=== PATIENT | male | born 1965 | race Caucasian/White ===

== ENCOUNTER → 2021-10-07 13:06 | Outpatient (CLI) | payer OTHER, SELFPAY ==
[2021-10-07 16:10] LABS: COVID19 -Nasal RAPID Negative (Negative)
== END ==
PROVIDERS: Referring Provider Orthopaedic Surgery; Visit Provider Family Medicine Sleep Medicine
DX: Z20.822 Contact with and (suspected) exposure to COVID-19 (principal)
CPT/HCPCS: 87635; C9803

== ENCOUNTER → 2021-11-06 13:10 | Outpatient (CLI) | payer OTHER, SELFPAY ==
[2021-11-06 14:46] LABS: COVID19 -Nasal RAPID Negative (Negative)
== END ==
PROVIDERS: PCP Family Medicine; Referring Provider Orthopaedic Surgery; Visit Provider Nurse Practitioner Family
DX: Z20.822 Contact with and (suspected) exposure to COVID-19 (principal)
CPT/HCPCS: 87635; C9803

== ENCOUNTER 2021-11-08 11:32 | Day surgery (SDC) | payer OTHER, SELFPAY ==
[2021-09-27 15:07] VITALS: BMI 39.2
--- NOTE | 2021-10-09 07:31 | SUR.PREOP ---
10/09/21-0730am- Dr Holliday here at bedside to explain to patient of reason to delay of procedure today. Given option for being done Thursday afternoon if cancelled today.
[2021-11-08] VITALS (13 sets, daily range): BP systolic 112–145; BP diastolic 62–89; PULSE 60–84; RESP 16–23; TEMP 35.9–37.4; O2SAT 93–98; BMI 39.2
--- NOTE | 2021-11-08 06:00 | DI.RAD.S_ITS ---
PROCEDURE: XR KNEE LT 1TO2V INDICATIONS: post op total knee TECHNIQUE: 2 view(s) of the knee acquired. COMPARISON: None. FINDINGS: Bones: Patient is status post knee joint arthroplasty. Hardware components are in expected positions. Visualized bony structures are intact. Soft tissues: Overlying postoperative changes are noted. IMPRESSION: Postop changes from left total knee arthroplasty with anatomic left knee alignment. Dictated by: Warren Wood M.D. on 11/08/2021 at 16:35 Approved by: Warren Wood M.D. on 11/08/2021 at 16:36
[2021-11-08] MEDS: ACETAMINOPHEN 325 MG TABLET 975 MG PO (11:46)
[2021-11-08] MEDS: PREGABALIN 75 MG CAPSULE PO (11:47)
[2021-11-08] MEDS: CELECOXIB 200 MG CAPSULE PO (11:47)
[2021-11-08] MEDS: LACTATED RINGERS 1,000 ML 42 ML IV (12:08)
--- NOTE | 2021-11-08 12:17 | SUR.OPER ---
Supine on padded OR bed. Pillow under head, arms secured on padded armboards <90 degree abduction. Safety belt across torso. Non-operative leg secured with tape over blanket over lower leg. Operative leg secured in DeMayo/Jemal/Nathe positioner. Foam padded brace at thigh of operative leg.
--- NOTE | 2021-11-08 12:42 | PM.HP.1 ---
History of Present Illness History of Present Illness Date Patient Seen: 11/08/21 Time Patient Seen: 12:42 Chief complaint: LT TKA *OPB* Narrative: The patient has had long-term left knee pain that has not responded to non operative measures. He was originally planning to have a total knee replacement done in September however was delayed by the governor is mandate on - closing the hospital to elective surgery. This is an interval history and physical. There has been no significant change in his history since his previously completed history and physical on September 17. Patient History Medical History Actinic keratosis Decreased libido Delayed emergence from general anesthesia Erectile dysfunction History of chest pain HTN (hypertension) Hyperlipidemia Knee effusion Overweight RBBB Shortness of breath on exertion Sleep apnea Unilateral primary osteoarthritis, left knee Urinary tract infection (~01/2021) Surgical History H/O arthroscopy of right knee H/O meniscectomy of right knee History of colonoscopy with polypectomy History of knee surgery Family & Social History Social History: household members spouse Prior Living Arrangements House Safety & Behavioral: Feels Safe in Current Yes Environment Been Physically Hurt or No Threatened By a Person Suicidal Ideation Description None Suicide Plan Description No Plan Tobacco & Substance use: Smoking Status Former smoker Smoking packs per day 0.33 alcohol intake former Substance Use Type marijuana Meds Home Medications and Allergies Home Medications Medication Instructions Recorded Confirmed Type acetaminophen 500 mg tablet 1,000 mg PO Q6H PRN 09/27/21 11/08/21 History compression socks, medium 09/27/21 09/27/21 History esomeprazole magnesium 20 mg 20 mg PO BEDTIME 09/27/21 11/08/21 History capsule,delayed release (Nexium) gabapentin 400 mg tablet 1,200 mg PO QAM 09/27/21 11/08/21 History gabapentin 400 mg tablet 800 mg PO BEDTIME 09/27/21 11/08/21 History ketoconazole 2 % shampoo 1 applic TOPICAL DAILY 09/27/21 09/27/21 History metoprolol succinate 50 mg 75 mg PO BEDTIME 09/27/21 11/08/21 History tablet,extended release 24 hr (Toprol XL) potassium chloride 8 mEq 8 meq PO BID 09/27/21 11/08/21 History capsule,extended release tadalafil 10 mg tablet 10 mg PO DAILY PRN 09/27/21 11/08/21 History triamterene 75 1 tab PO DAILY 09/27/21 11/08/21 History mg-hydrochlorothiazide 50 mg tablet Allergies Allergy/AdvReac Type Severity Reaction Status Date / Time latex Allergy Mild Rash Verified 11/08/21 12:00 lisinopril AdvReac Mild Cough Verified 11/08/21 12:00 Review of Systems Review of Systems Narrative: The patient reports he is in his normal state of health. There have been no recent acute changes. Exam Vital Signs (past 8 hours): - 11/08/21 12:03 Temperature 98.4 F Pulse Rate 68 Respiratory Rate 16 Blood Pressure 145/89 H Pulse Oximetry 98 Oxygen Delivery Method Room Air Narrative Exam Narrative: He is an obese gentleman lying comfortably in his hospital [facility]. Chest is clear to auscultation. Cardiac exam is regular rate and rhythm. Abdomen is obese soft nontender. Left knee examination is documented in the prior history and physical. Assessment & Plan Assessment & Plan narrative: Left knee osteoarthritis which has failed to respond to non operative measures. As noted in the prior history and physical he has agreed to surgery after discussion the risks benefits and alternatives. Risks discussed included but were not limited to: Failure to improve, stiffness, infection, nerve damage, deep venous thrombosis, pulmonary embolism, stroke, myocardial infarction, permanent paralysis and . COVID-19 COVID-19 status: Negative Result date/Date tested (Pos, Neg/Pending): 11/06/21 Time Spent With Patient Critical Care time: I spent a total of [] minutes of critical care time on this patient's care today; this time is exclusive of procedural time.
[2021-11-08] MEDS: CEFAZOLIN 2 GM/20 ML SYRINGE IV (13:25)
[2021-11-08] MEDS: TRANEXAMIC ACID 1,000 MG VIAL 1000 MG INJ ×2 (13:30→14:34)
[2021-11-08] MEDS: BUPIVACAINE LIPOSOME 266 MG/20 ML VIAL INJ (13:44)
[2021-11-08] MEDS: BUPIVACAINE 0.25% (PF) 60 ML, EPINEPHrine 0.3 MG INJ (13:45)
[2021-11-08] MEDS: MORPHINE 4 MG/ML INJ INJ (14:04)
--- NOTE | 2021-11-08 15:05 | PM.OP.1 ---
Operative Date/Time/Diagnoses Date of procedure: 11/08/21 Time of procedure: 15:05 Pre-op diagnosis: Left knee osteoarthritis Post-op diagnosis: same Procedure & Clinicians Procedure: Left total knee replacement Same procedure as scheduled: Yes Indications: The patient has had progressively worsening left knee pain with radiographic changes consistent with arthritis. Non-operative management has failed and the patient has requested total knee replacement. The risks, benefits and alternatives to surgery were discussed with the patient prior to proceeding. Risks discussed included, but were not limited to, failure to relieve pain, stiffness, infection, nerve damage, deep venous thrombosis, pulmonary embolism, stroke, coma, heart attack, permanent paralysis and , as well as the potential need for eventual revision of the prosthetic. Surgeon: Barrett Holliday Probation And Parole Officer: Katlin Hennessy Yes if Unassisted: No Anesthesia Type: General, Spinal and Local Operative Notes Findings: Severe medial and moderate patellofemoral and lateral osteoarthritis Closure Type: primary Specimen(s): none sent Prosthetic devices, grafts, tissues, transplants, or devices: Implants used in this procedure were manufactured by the [employer] and included the BCS II Journey total knee replacement with a size 6 left Oxinium femoral component, a size 6 left non porous tibial base plate, a 9 mm cross-linked polyethylene tibial insert and a 35 mm oval Lynda II patellar component. Applied: implant(s) Estimated Blood Loss (mL): 25 Blood products transfused: none Tourniquet time (min): 53 Procedure in detail: The patient was seen in the pre-operative area, where the left knee was identified as the operative site and this was marked with my initials. The patient received pre-operative antibiotics, and was taken to the operating room and placed on the operative table in the supine position. After satisfactory anesthesia, a second time worker out was performed. The left leg was encircled with a tourniquet about the proximal thigh, and the leg was prepared from the toes to the tourniquet with ChloroPrep in the usual fashion and draped through sterile drapes. The leg was elevated and exsanguinated with Eschmark bandage and the tourniquet inflated to 250 mmHg pressure. The knee was approached through an approximately 18 cm incision centered over the patella and carried into the knee through a medial parapatellar arthrotomy. The anterior osteophytes and soft tissues were removed. The rotational landmarks of Bannister's line and the transepicondylar axis were marked on the femur with electrocautery, and intramedullary guide holes for the femur and tibia were created. The distal femoral cut was made in 6 degrees of valgus using the intramedullary guide at the primary cut setting. The proximal tibial cut was then made using the intramedullary guide, taking 9 mm of bone off the less involved side. The extension gap was checked and the rotation of the femoral component confirmed with the gap balancing blocks. The anterior, posterior and chamfer cuts were then made. The posterior osteophytes and soft tissues were then removed. The posterior capsule was injected with part of a mixture of 60 ml 0.25% Marcaine mixed with 20 ml Exparel and 4 mg of morphine for post-operative pain control. The remainder of this mixture was injected into the capsule and subcutaneous tissues during cement curing. The tibia was prepared with the rotation set by an extra medullary guide. Trial tibial and femoral components were then placed and the intercondylar notch cut through the femoral trial. Range of motion was 0-135 degrees, with good stability throughout the range. The patella was then cut to accommodate the patellar prosthetic. There was no need for a lateral release. The trials were then removed, and the femoral hole plugged with a bone plug. The bone was prepared with pulsatile lavage, and dried with a sponge. Cement was applied and the final prosthetics placed. Excess cement was removed during and after cement curing. After confirming there was no extruded cement posteriorly, the final tibial insert was placed. The knee was copiously irrigated and the tourniquet deflated. Hemostasis was obtained. The capsule was closed with interrupted # 2 polyester sutures. The subcutaneous layer was closed with 3-0 Vicryl, and the skin with a running 3-0 V-Lock suture and Dermabond. An Aquacel Ag dressing was applied and the patient was taken to recovery having tolerated the procedure well. Complications: none Post-operative Condition: stable Disposition: PACU Plan for aftercare: The patient will be maintained on a standard total knee replacement protocol with weight bearing as tolerated. The patient will receive aspirin and sequential compression devices for DVT prophylaxis. The patient will be discharged home when safe for the home environment.
[2021-11-08] MEDS: SCOPOLAMINE 1 PATCH TOP (16:04)
[2021-11-08] MEDS: ONDANSETRON 4 MG/2 ML INJ IV (16:07)
[2021-11-08] MEDS: LACTATED RINGERS 1,000 ML 100 ML IV (16:15)
[2021-11-08] MEDS: IBUPROFEN 400 MG TABLET PO ×2 (17:02→20:33)
[2021-11-08] MEDS: hydrOXYzine pamoate 25 MG CAPSULE PO (17:02)
[2021-11-08] MEDS: METOCLOPRAMIDE 10 MG/2 ML INJ IV (17:02)
--- NOTE | 2021-11-08 18:49 | PC.NURSE ---
1615- Rec'd pt from PACU. AO x4. RA. Stable VS. Pt reports tingling to bilateral upper thighs and numbness distally, equally, and bilaterally. Pt is able to lift leg and wiggle toes. Reports decreased sensation. Denies pain. Reports mild nausea. Tolerated ice chips, apple sauce, and crackers. General diet for dinner tolerated well. LR infusing per order. Pt has home cpap at bedside. Oriented to room, routine, use of call light, fall risk. Instructed pt to wait for assistance before getting OOB. Pt verbalizes understanding.
[2021-11-08] MEDS: HYDROMORPHONE 2 MG TABLET PO (20:33)
[2021-11-08] MEDS: PANTOPRAZOLE DR 20 MG TABLET PO (20:34)
[2021-11-08] MEDS: METOPROLOL ER 50 MG TABLET 75 MG PO (20:34)
[2021-11-08] MEDS: DOCUSATE 100 MG CAPSULE PO (20:34)
[2021-11-08] MEDS: POTASSIUM CHLORIDE 10 MEQ TAB PO (20:34)
[2021-11-08] MEDS: GABAPENTIN 400 MG CAPSULE 800 MG PO (20:34)
[2021-11-08] MEDS: ASPIRIN EC 81 MG TABLET PO (21:10)
[2021-11-08] MEDS: OXYCODONE/ACETAMINOPHEN 5/325 TABLET 1 TAB PO (22:16)
[2021-11-09] VITALS: BP 120/71; PULSE 67; RESP 22; TEMP 36.7; O2SAT 98
[2021-11-09] MEDS: OXYCODONE IR 10 MG TABLET PO ×4 (00:34→12:52)
[2021-11-09] MEDS: IBUPROFEN 400 MG TABLET PO ×4 (00:35→12:52)
--- NOTE | 2021-11-09 00:37 | PC.NURSE ---
Addendum entered by Brii Alston R.N. 11/09/21 04:41: 0430: Pt still unable to void. Straight cath performed per sterile procedure, 900 mL clear abena urine obtained, pt tolerated well. Original Note: 0015: Pt still unable to void. Bladder scan performed, 530 mL scanned. Pt defers straight cath at this time, stating he would like to try voiding again at 0400 and if unable will be amenable to straight cath.
[2021-11-09 04:00] VITALS: BP 120/71; PULSE 70; RESP 18; TEMP 36.9; O2SAT 97
[2021-11-09] MEDS: POTASSIUM CHLORIDE 10 MEQ TAB PO (08:40)
[2021-11-09] MEDS: ASPIRIN EC 81 MG TABLET PO (08:40)
[2021-11-09] MEDS: TRIAMTERENE/HCTZ 37.5/25 CAPSULE 1 CAP PO (08:40)
[2021-11-09] MEDS: GABAPENTIN 600 MG TABLET 1200 MG PO (08:41)
[2021-11-09] MEDS: DOCUSATE 100 MG CAPSULE PO (08:41)
--- NOTE | 2021-11-09 08:51 | PM.DS.1 ---
History of Present Illness History of Present Illness Date Patient Seen: 11/09/21 Time Patient Seen: 08:51 Chief complaint: LT TKA *OPB* Narrative: The patient has had long-term left knee pain that has not responded to non operative measures. He was originally planning to have a total knee replacement done in September however was delayed by the governor is mandate on COVID- closing the hospital to elective surgery. This is an interval history and physical. There has been no significant change in his history since his previously completed history and physical on September 17. Discharge Providers Provider Date of admission: 11/08/21 16:35 Discharge Date: 11/09/21 Primary care physician: Kiarra Phelps MD Consults: 11/08/21 15:56 Consult to Discharge Planning Routine Comment: Consult to Physical Therapy Evaluate & Treat Comment: Physician Instructions: postop TKA protocol Discharge provider: Barrett Holliday MD Summary Hospital Course Discharge Diagnosis: 1. Left knee osteoarthritis. 2. Post operative urinary retention. Hospital Course: The patient was admitted to the hospital on 11/08/21 and taken directly to the operating room, where he underwent a left total knee replacement without difficulties. He had good pain control overnight, but did require straight catherization for urinary retention. On the morning of post operative day one, it is anticipated he will be able to go home today once he demonstrates he can void spontaneously. Status at Discharge Cognitive/behavioral status at discharge: at baseline, oriented Functional status at discharge: uses cane/walker Overall status at discharge: patient is progressing back to baseline Time Spent with Patient Time spent: Less than 30 minutes Exam Vital Signs (past 8 hours): - 11/09/21 04:00 Temperature 98.4 F Pulse Rate 70 Respiratory Rate 18 Blood Pressure 120/71 Pulse Oximetry 97 Oxygen Delivery Method Room Air Oxygen Flow Rate 0 Narrative Exam Narrative: Left knee wound is dressed with no drainage on the bandage. Calf is soft. Light touch and motion are intact in the left lower extremity. [facility] Medical History Actinic keratosis Decreased libido Delayed emergence from general anesthesia Erectile dysfunction History of chest pain HTN (hypertension) Hyperlipidemia Knee effusion Overweight RBBB Shortness of breath on exertion Sleep apnea Unilateral primary osteoarthritis, left knee Urinary tract infection (~01/2021) Surgical History H/O arthroscopy of right knee H/O meniscectomy of right knee History of colonoscopy with polypectomy History of knee surgery Social History household members: spouse Smoking Status: Former smoker alcohol intake: former Discharge Assessment & Plan Assessment and Plan Assessment: Stable post operative day one from a left total knee replacement with the exception of urinary retention, likely due to the spinal anesthetic, overnight. Plan of Treatment: Voiding trial today, then discharge to home. Follow up at my office in 10-14 days. Outpatient physical therapy. He has been given prescriptions for oxycodone and Vistaril for pain and spasm control. He has been instructed in the use of Tylenol and ibuprofen for additional pain control. Discharge Plan Discharge Plan Patient Disposition: Home Discharge orders & Medications Prescriptions: New aspirin 81 mg Tablet,Delayed Release (Dr/Ec) 81 mg PO BID 42 Days Qty: 84 0RF ibuprofen 400 mg Tablet 400 mg PO Q4HR 30 Days 0RF oxycodone 5 mg Tablet 5 mg PO Q4H PRN (Reason: Pain, Moderate (4-6)) Qty: 40 0RF hydroxyzine pamoate 25 mg Capsule 25 mg PO Q6HR PRN (Reason: Spasms) Qty: 30 0RF Continued metoprolol succinate [Toprol XL] 50 mg Tablet Extended Release 24 Hr 75 mg PO BEDTIME 0RF triamterene-hydrochlorothiazid 75-50 mg Tablet 1 tab PO DAILY 0RF esomeprazole magnesium [Nexium] 20 mg Capsule,Delayed Release(Dr/Ec) 20 mg PO BEDTIME 0RF tadalafil 10 mg Tablet 10 mg PO DAILY PRN (Reason: Erectile Dysfunction) 0RF (DME) compression socks, medium Misc MISCELLANEOUS 0RF Rx Instructions: Wear one compression sock on each leg every day for peripheral edema ketoconazole 2 % Shampoo 1 applic TOPICAL DAILY 0RF Label Comments: Apply to face daily for rosacia potassium chloride 8 mEq Capsule, Extended Release 8 meq PO BID 0RF acetaminophen 500 mg Tablet 1,000 mg PO Q6H PRN (Reason: Pain) 0RF Label Comments: States that he usually takes two during the night gabapentin 400 mg Tablet 1,200 mg PO QAM 0RF gabapentin 400 mg Tablet 800 mg PO BEDTIME 0RF Follow up/Referrals: Barrett Holliday MD [Physician] - 2 Weeks Kiarra Phelps MD [Primary Care Provider] - Discharge Health Status Multidrug resistant organism: No MDRO Diet/Activity/Treatments Diet: Diet as Tolerated and Regular Activity: You may bear weight as tolerated on your left leg. Cold/Heat Therapy: Apply ice for 15 minutes of every hour to the left knee as needed for pain control. Skin/Wound/Dressing Care Report to your healthcare provider any signs of infection, such as:: chills, fever, night sweats, increased pain, unusual drainage and unusual redness Dressing: You may remove the Roe wrap 3 days after surgery and shower normally with the deeper dressing in place. Do not remove the deeper dressing until your follow up in our office. If the central strip of the deeper dressing becomes saturated with either water or blood, please call the office to have it evaluated. Visit Report/Discharge Packet Instructions: DI for Knee Replacement, DI for Prescription Opioid Use Stand Alone Forms: Surgery Discharge Discharge Data Primary Care Provider: Kiarra Phelps
[2021-11-09 10:30] VITALS: BP 122/67; PULSE 76; RESP 18; TEMP 36.6; O2SAT 98
--- NOTE | 2021-11-09 11:25 | PT.IIE ---
Current Diagnoses Unilateral primary osteoarthritis, left knee (11/08/21) Surgery Performed Operation Date: 11/08/21 13:00 Actual Procedures p Total Knee Arthroplasty(Left) - Barrett Holliday MD Medical History (Last Reviewed 11/08/21 @ 12:43 by Barrett Holliday MD) Actinic keratosis Decreased libido Delayed emergence from general anesthesia Erectile dysfunction History of chest pain HTN (hypertension) Hyperlipidemia Knee effusion Overweight RBBB Shortness of breath on exertion Sleep apnea Unilateral primary osteoarthritis, left knee Urinary tract infection (~01/2021) Physical Therapy Inpatient Evaluation/Re-Eval M1 PT/OT-IP Prior Functional Status Start: 11/09/21 12:45 Freq: NEEDED Status: Active Protocol: Document 11/09/21 11:25 AB (Rec: 11/09/21 12:55 AB [id number]) Medical Review Prior Functional Status Medical History Reviewed Yes Communication able to make needs known Mobility and Gait pt stated that he is independent with all mobilities and ambulation without AD Social History Household Members spouse Living Arrangements House Number of Floors (Floors) One Floor Number of Stairs To Enter/Railing? 1 step to enter without rails Home Environment High Toilet,Walk in Shower, Built-In Shower Seat Home Equipment Crutches,Hand Held Shower,Grab Bars In Shower Additional Social History Comment has access to a 4WW M2 PT-IP Current Condition Start: 11/09/21 12:45 Freq: NEEDED Status: Active Protocol: Document 11/09/21 11:25 AB (Rec: 11/09/21 12:55 AB [id number]) Physical Therapy Current Condition Current Condition Evaluation Date 11/09/21 Treatment Diagnosis s/p L TKA; difficulty in walking Onset Date 11/08/21 M3 PT-IP Subjective Start: 11/09/21 12:45 Freq: NEEDED Status: Active Protocol: Document 11/09/21 11:25 AB (Rec: 11/09/21 12:55 AB [email or web address]) Subjective Physical Therapy Visit Type Type Initial Evaluation Visit Start Time 11:25 Visit Stop Time 12:08 Total Visit Minutes 43 Number of CLINICAL APPLICATIONS MANAGER Visits 0 Physical Therapy Visit Comments Patient Comments agreeable to do PT Therapy Pain Assessment Pain When Pain Assessed At Rest Pain Present Pain Present Pain Reported Location left knee Intensity 2 Scale Used 5/10 with mobility Pain Management Techniques Distraction,Modification of Treatment,Re-positioning, Timing of Activity with Medications M4 PT-IP Mobility and Gait Start: 11/09/21 12:45 Freq: NEEDED Status: Active Protocol: Document 11/09/21 11:25 AB (Rec: 11/09/21 12:55 AB [id number]) PT-Bed Mobility Assessment Supine to Sit Supine to Sit Standby Assistance PT-Transfer Assessment Sit to and From Stand Sit to and from Stand Contact Guard Assistance,1 Person Assistance,Use of Upper Extremities Equipment Transfer Assistive Device Gait Belt,Front Wheeled Walker Orthotic/Prosthetic Devices or Brace: No Transfers Transfer Destination Chair Transfer Technique ambulated Transfer Ability Level of Assist Contact Guard Assistance,1 Person Assistance,Use of Upper Extremities Comments Mobility Comments completed supine to sit SBA. sit to stand with cues CGA. ambulated to the chair using FWW CGA. pt educated on use of 4WW and stair climbing. completed sit to stand from the chair CGA and ambulated using FWW CGA ~ 40 ft. completed up/down step uisng 4WW CGA. ambulated back to his room CGA and sat on chair. call light and table placed within reach. informed pt to ask his spouse to bring the 4WW with her for adjustement. Gait Assessment Gait Gait Assistance Required: Standby Assistance,Contact Guard Assist Distance (Feet) 40 Able to Maintain Weight Bearing Status Yes During Gait Assistive Devices Assistive Device Gait Belt,Front Wheeled Walker ,4 Wheeled Walker Orthotic/Prosthetic Devices or Brace: No Gait Deviations General Gait Pattern Decreased Stride Length, Decreased Feet Clearance Factors Limiting Gait Function Factors Limiting Gait Function Decreased Activity Tolerance, Decreased Strength,Limited Range of Motion,Pain,Poor Balance,Poor Safety Awareness Stair Climbing Assessment Evaluation Level of Assist On Stairs Contact Guard Assistance Devices Stair Climbing Assistive Devices Four Wheel Walker Technique/Endurance Stair Climbing Direction Ascend and Descend Stair Climbing Technique Step to Step Number of Steps Climbed 1 Query Text: Stair Climbing Set # Repetitions (reps) 2 PT-Balance Assessment Sitting Balance and Reactions Static Sitting Balance Ability Normal Dynamic Sitting Balance Ability Good Standing Balance and Reactions Static Standing Balance Ability Fair Dynamic Standing Balance Ability Fair Device Used FWW M5 PT-IP Objective Assessments Start: 11/09/21 12:45 Freq: NEEDED Status: Active Protocol: Document 11/09/21 11:25 AB (Rec: 11/09/21 12:55 AB [email or web address]) Orientation Orientation/Cognition Level of Alertness Alert Orientation Name,Age,Birthday,Month,Date, Year,Day of Week,Place, Situation Language Function Ability No Deficits Noted Safety Awareness Understands Safety Issues Memory Description No Deficits Noted Gross Range of Motion Lower Extremity ROM Assessment Left Impaired Impairments L knee flexion ~ 70 deg Strength Lower Extremity Strength Assessment Left Impaired Hip 4-/5 Knee 3+/5 Sensation Assessment Sensation Gross Sensation WNL Muscle Tone Muscle Tone WNL Yes M6 PT-IP Treatment Start: 11/09/21 12:45 Freq: NEEDED Status: Active Protocol: Document 11/09/21 11:25 AB (Rec: 11/09/21 12:55 AB [email or web address]) Physical Therapy Treatment Exercises Exercises Heel Slides Education Education Provided Precautions,Weight Bearing Status,Post-Op Packet,Safety M7 PT-IP Assessment and Plan Start: 11/09/21 12:45 Freq: NEEDED Status: Active Protocol: Document 11/09/21 11:25 AB (Rec: 11/09/21 12:55 AB [email or web address]) PT Summary Assessment and Plan Potential Rehabilitation Potential Good Status of Condition at Evaluation Stable Summary Impairments Pain,ROM,Strength,Balance, Coordination,Sensation,Tone, Cognition,Bed Mobility, Transfers,Gait,Activity Tolerance Assessment Summary pt requiring CGA with mobility and will have his spouse to assist him at home. pt stated that he has outpt PT set up. Pt will ask his spouse to bring in his 4WW for adjustment but if 4WW will not the the right height for him, he wants a FWW dispensed to him from [facility] through the hospital. will f/ u. Goals Bed Mobility Goal Independent Transfer Goal Independent,Front Wheeled Walker,Four Wheeled Walker Gait Goal Independent,Front Wheel Walker ,Four Wheel Walker Gait Distance 250 Other Goals up/down 1 step using FWW/4WW mod I Days to Meet Goals 5 Frequency of Treatment Frequency Of Treatment Twice a Day Treatment Plan Physical Therapy Treatment Plan Bed Mobility Training,Transfer Training,Gait Training, Therapeutic Exercise,Balance Retraining,Post Op Education, Discharge Planning,Hot or Cold Pack,Neuromuscular Re-ed, Coordination Retraining,Manual Therapy Weight Bearing Status Weight Bearing Status Weight Bear as Tolerated Allowed Weight Bearing Amount (enter % LLE WBAT or #) (%) Recommendations To Nursing Amount of Assist Needed 1 Person Assist Discharge Recommendations PT Discharge Recommendations Home with Assistance, Outpatient PT Transportation Needs at Discharge Private Vehicle
--- NOTE | 2021-11-09 12:20 | CM.DANOTE ---
DCP: Case received, EMR reviewed and met with patient. Introduced self and role. Was able to obtain information regarding patient's baseline activity level prior to hospitalization. DCP assessment completed with information currently available. Patient is a 56 year old male who admitted yesterday afternoon to the care of the orthopedic team. PCP: Dr. Phelps. Payer: confirmed: [employer]. Patient came to the hospital via private vehicle for a surgical procedure. Patient had left total knee arthroplasty. Patient has history of osteoarthritis. Met with patient in his room. He is alert and oriented. He and spouse both reside in [place]. At his baseline, he is independent, he does drive. He has crutches at home that were given to him by his brother that he uses at times. Confirmed that his spouse will be able to assist when he goes home. P: Patient has discharge orders for home today, pending working with PAlexandre Castellanos RN/Tugboat Engineer Discharge Planning/Care Management CM Discharge Assessment Start: 11/09/21 12:17 Freq: Status: Active Protocol: Document 11/09/21 12:17 (Rec: 11/09/21 12:20 [id number]) Discharge Planning Assessment Assigned Poly Area Supervisor Blanca Castellanos RN/Tugboat Engineer Advance Directives? No History Provided By Patient,Family Member,Medical Record Prior Living Arrangements House Household Members spouse Type of transporation used prior to Drives own vehicle admit Independent with ADL's Yes Is patient alert and oriented? Yes Caregiver for Another No Patient/Family Preference OP PT Therapy Barriers to Discharge No Discharge Plan Home Transportation Arrangement Spouse Referrals Initiated None needed Whiteboard Updated in Patient Room with Yes name and ext. # of Poly Area Supervisor Review Status In Process Next Review Type Continued Stay Review Pre-Anesthesia Assessment Start: 09/27/21 15:07 Freq: Status: Complete Protocol: Document 09/27/21 15:07 [place] (Rec: 09/27/21 15:37 [facility] [id number]) Pre-Anesthesia Assessment Patient Information Reviewed Via Chart Review,Phone Assessment Assessment Completed With Patient Consent for Planned Operative Procedure( No s) Verified H&P Completed Within 30 Days No Diagnostic Results CBC,EKG,Electrolytes Primary Care Provider Kiarra Phelps Medical Clearance Received Not Applicable Seen Specialist in Last 12 Months Yes Specialist Seen Sinter Machine Operator,Orthopedist, Urologist Primary Language Ghanaian Preferred Language Ghanaian Tsa Screener Required No Height 6 ft 1 in Weight 297 lb Body Mass Index (BMI) 39.2 Hearing Ability Normal Visual Impairment Partially Limited Visual Assist Contacts,Glasses Dentition Type Teeth, Natural Present Barriers to Learning Visual Other Aids No Hx Anesthesia Reactions Yes: Delayed emergence from GA Hx Family Anesthesia Reaction No Hx Malignant Hyperthermia No Hx Blood Transfusions No Hx Blood Transfusion Reaction No Anesthesia Review Requested No Electrical Technician No alcohol intake former Alcohol Intake Frequency Other: none since last March, drank 2 beers/day prior to that Smoking Status Former smoker Smoking packs per day 0.33 Has it been 2 weeks or less since No patient quit smoking how long ago did patient quit smoking 08/17/1988 Smoking pack-years 3 Substance Use Type marijuana Comment Smoke a tiny bit before I go to bed so that I can sleep Pain Present Pain Reported Comment L Knee Musculoskeletal Symptoms Abnormal Gait,Back Pain, Difficulty Walking,Joint Pain, Joint Stiffness History of Falling (Recent or History of Yes ) Comment Trips, fallen to knees about every 6 months Patient is completely paralyzed or No completely immobile Ambulatory Aid None/bed rest/nurse assist Gait/Transferring Normal/bedrest/immobile Mental Status Oriented to own ability Is patient on oxygen? Yes Does patient have WAYNE/SOB Yes Hx Sleep Apnea Yes CPAP/BIPAP use prescribed and used routinely Will Bring CPAP/BIPAP DOS Yes Suspected Sleep Apnea Yes Currently Taking a Beta Thalia Yes: Metoprolol Can You Climb a Flight of Stairs Without Yes: Doesn't do it due to knee SOB pain Hx Chest Pain No Hx SOB Yes Hx Syncope or Dizziness No Anti-Coagulant Therapy No Has a Sinter Machine Operator Yes Cardiac Testing Yes: `Echo 06/12/21 scanned Hx Pacemaker/ICD No Cardiac Clearance Received Not Applicable Diet Type At Home Regular dysphagia No Comment Reflux controlled with med Bladder Pattern Nocturia Urinary Catheter Present No Hx Urinary Self Catheterization No Diabetes No Hx Drug Resistant Organism No Presence of External or Internal Medical No Devices Have you had any close contact with No someone diagnosed with COVID-19? Are you experiencing any of these No symptoms symptoms? Received a COVID vaccine? Yes: Moderna x2 Received all doses? Yes Marital Status Lives With spouse Prior Living Arrangements House Number of Floors (Floors) One Floor Number of Stairs To Enter/Railing? One step from garage into the house, 3 to back yard Support System Family,Spouse Does the Patient Have Assistance After Yes Surgery Patient Discharge Plan Description Home Health Feels Safe in Current Environment Yes Been Physically Hurt or Threatened By a No Person in Current Environment Do you have thoughts of harming yourself None or others? Are you currently considering suicide? No Do you have a plan to hurt yourself or No Plan others? Do You Have Any Spiritual Beliefs That No May Affect Your HC Choices? Do You Have Any Cultural Practices That No May Affect Your HC Choices? Spiritual Referral None Who Can We Speak to About Patient's Care Family & Friends Identifying Code for Release of Patient Declined Information Health Care Proxy/Next of Kin Kori Richards Health Care Proxy Emergency Contact Name Kori Richards Emergency Contact Advance Directives? No Power of Graphotype Operator No PAC Instructions Assistance for 24 hours post- op,Bring CPAP/BIPAP,Do not shave/clip surgical site, Medications to take/avoid, Nasal antibiotic,No ETOH/ petroleum product on skin DOS, NPO,Post-op transportation,Pre -op antibiotic,Pre-surgical wash,Sensory aids,Sturdy shoes /comfortable clothes,Do not bring valuables and remove jewelry
== END 2021-11-09 13:45 | disposition home or self-care (01) ==
LOC: OR 11:33 → AC 11:34
PROVIDERS: PCP Family Medicine; Referring Provider Orthopaedic Surgery; Visit Provider Orthopaedic Surgery
PROC: 0SRD0JZ Replacement of Left Knee Joint with Synthetic Substitute, Open Approach (ICD-10-PCS; CPT 27447; principal; 2021-11-08 13:00)
DX: M17.12 Unilateral primary osteoarthritis, left knee (principal); I10 Essential (primary) hypertension; G47.33 Obstructive sleep apnea (adult) (pediatric); E66.9 Obesity, unspecified; Z68.39 Body mass index [BMI] 39.0-39.9, adult
CPT/HCPCS: 27447; 73560; 97116; 97161; C1776; C1713; C9290; J0171; J0690; J1100; J2250; J2270; J2274; J2405; J2704; J2765; J3010